=== PATIENT | female | born 1960 | race Caucasian/White ===

== ENCOUNTER → 2021-09-04 07:58 | Outpatient (CLI) | payer SELFPAY ==
--- NOTE | 2021-09-04 08:06 | BI_ITS ---
MAMMOGRAPHY - BILATERAL SCREENING REASON FOR EXAM: Female, 61 years old. Routine annual screening examination. PERTINENT HISTORY: Mother with breast cancer. Aunts with breast cancer. TECHNIQUE: Digital bilateral breast shadi (3D mammographic acquisition) in the CC and MLO projections. 2-D mediolateral oblique (MLO) and craniocaudad (CC) views of both breasts were obtained. CAD: Full Field Digital Mammography with Computer Added Detection was performed. COMPARISON: No comparison mammograms available at this time. If any prior films become available, an addendum to this report can be generated. FINDINGS: Breast Composition: The breasts are heterogeneously dense, which may obscure small masses. There are no dominant masses or suspicious calcifications. Small benign-appearing bilateral axillary lymph nodes. No other significant abnormalities are identified. BI/SCRN MAMM (CAD)W/SHADI BILAT IMPRESSION: Negative screening mammogram. Yearly followup mammogram recommended. (A) ASSESSMENT CATEGORY: BIRADS Category 2: Benign. A letter regarding these results will be sent to the patient by the facility within 30 days. Approximately 10% of breast cancers are not detected by mammography. A normal mammogram should not delay biopsy of a clinically suspicious abnormality. [id number] Electronically Signed: Mike Valle MD at 9:13 EST , Service support ,
== END ==
PROVIDERS: Visit Provider Obstetrics & Gynecology
DX: Z12.31 Encounter for screening mammogram for malignant neoplasm of breast (principal); Z80.3 Family history of malignant neoplasm of breast
CPT/HCPCS: 77063; 77067

== ENCOUNTER → 2022-08-27 | Outpatient (CLI) | payer SELFPAY, OTHER ==
--- NOTE | 2022-08-27 10:05 | BI_ITS ---
MAMMOGRAPHY - BILATERAL SCREENING REASON FOR EXAM: Female, 62 years old. Routine annual screening examination. PERTINENT HISTORY: Mother with breast cancer. Aunts with breast cancer. Occasional left lateral breast tenderness. TECHNIQUE: Digital bilateral breast shadi (3D mammographic acquisition) in the CC and MLO projections. 2-D mediolateral oblique (MLO) and craniocaudad (CC) views of both breasts were obtained. CAD: Full Field Digital Mammography with Computer Added Detection was performed. COMPARISON: Comparison is made with prior study dated 09/04/2021. FINDINGS: Breast Composition: The breasts are heterogeneously dense, which may obscure small masses. Questionable focal area of architectural distortion in the upper lateral aspect of the right breast. Stable benign-appearing bilateral axillary lymph nodes. No other significant abnormalities are identified. BI/SCRN MAMM (CAD)W/SHADI BILAT IMPRESSION: A small focal area of architectural distortion upper lateral aspect of the right breast. Correlation with ultrasound is recommended. ASSESSMENT CATEGORY: BIRADS Category 0: Incomplete. Need additional imaging evaluation. A letter regarding these results will be sent to the patient by the facility within 30 days. Approximately 10% of breast cancers are not detected by mammography. A normal mammogram should not delay biopsy of a clinically suspicious abnormality. [id number] Electronically Signed: Mike Valle MD at 10:48 EST ,
--- NOTE | 2022-08-27 10:26 | US_ITS ---
STUDY: ULTRASOUND BREAST - RIGHT REASON FOR EXAM: Female, 62 years old. Abnormal screening mammogram. TECHNIQUE: Axial and longitudinal images of the RIGHT breast were performed with a high resolution ultrasound transducer. # OF IMAGES: 83 COMPARISON: Comparison is made with prior mammogram done earlier in the day. FINDINGS: RIGHT Breast: The upper outer aspect of the right breast was examined with ultrasound. There is dense heterogeneous fibroglandular tissue. No solid or cystic mass lesion is seen. 2 small benign-appearing lymph nodes are seen at the 10 o''clock position in the breast at 4 cm from nipple. The larger measures 6 mm x 5 mm x 3 mm IMPRESSION: 2 benign appearing lymph nodes are seen at the 9 o''clock position of the breast at 4 cm from the nipple. ASSESSMENT CATEGORY: BIRADS Category 2: Benign. A letter regarding these results will be sent to the patient by the facility within 30 days. Electronically Signed: Mike Valle MD at 12:32 EST , STUDY: ULTRASOUND BREAST - LEFT REASON FOR EXAM: Female, 62 years old. Left breast tenderness. TECHNIQUE: Axial and longitudinal images of the LEFT breast were performed with a high resolution ultrasound transducer. # OF IMAGES: 83 COMPARISON: Comparison is made with prior mammogram done earlier today. FINDINGS: LEFT Breast: The lateral aspect of the left breast was examined with ultrasound. No sonographic abnormality is seen. US/Breast Limited Unilateral IMPRESSION: No sonographic abnormality is seen. ASSESSMENT CATEGORY: BIRADS Category 1: Negative. A letter regarding these results will be sent to the patient by the facility within 30 days. Electronically Signed: Mike Valle MD at 12:32 EST ,
== END | disposition home or self-care (01) ==
LOC: OPBI 09:46
PROVIDERS: Referring Provider Registered Nurse; Visit Provider Registered Nurse
DX: Z12.31 Encounter for screening mammogram for malignant neoplasm of breast (principal); N64.2 Atrophy of breast
CPT/HCPCS: 76642; 77063; 77067

== ENCOUNTER → 2023-09-02 | Outpatient (CLI) | payer SELFPAY, OTHER ==
--- NOTE | 2023-09-02 08:56 | BI_ITS ---
MAMMOGRAPHY - BILATERAL SCREENING REASON FOR EXAM: Female, 63 years old. Routine annual screening examination. PERTINENT HISTORY: Mother with breast cancer. Aunt with breast cancer. TECHNIQUE: Digital bilateral breast shadi (3D mammographic acquisition) in the CC and MLO projections. 2-D mediolateral oblique (MLO) and craniocaudad (CC) views of both breasts were obtained. CAD: Full Field Digital Mammography with Computer Added Detection was performed. COMPARISON: Comparison is made with prior mammogram dated August 27, 2022 and September 04, 2021. FINDINGS: Breast Composition: The breasts are heterogeneously dense, which may obscure small masses. There are no dominant masses or suspicious calcifications. Stable small benign-appearing bilateral axillary lymph nodes. No other significant abnormalities are identified. There has been no significant change since the prior study. BI/SCRN MAMM (CAD)W/SHADI BILAT IMPRESSION: Stable bilateral screening mammogram. Yearly follow-up mammogram recommended. (A) ASSESSMENT CATEGORY: BIRADS Category 2: Benign. A letter regarding these results will be sent to the patient by the facility within 30 days. Approximately 10% of breast cancers are not detected by mammography. A normal mammogram should not delay biopsy of a clinically suspicious abnormality. [id number] Electronically Signed: Mike Valle MD at 9:44 EST ,
== END | disposition home or self-care (01) ==
LOC: OPBI 08:31
PROVIDERS: PCP Family Medicine; Referring Provider Advanced Practice Midwife; Visit Provider Advanced Practice Midwife
DX: Z12.31 Encounter for screening mammogram for malignant neoplasm of breast (principal); Z80.3 Family history of malignant neoplasm of breast
CPT/HCPCS: 77063; 77067

== ENCOUNTER → 2024-08-31 | Outpatient (CLI) | payer SELFPAY, OTHER | END | disposition home or self-care (01) | PROVIDERS: PCP Family Medicine; Referring Provider Nurse Practitioner Women's Health; Visit Provider Nurse Practitioner Women's Health | DX: Z12.31 Encounter for screening mammogram for malignant neoplasm of breast (principal) | CPT/HCPCS: 77063; 77067 ==

== ENCOUNTER → 2025-08-30 | Outpatient (CLI) | payer SELFPAY, OTHER ==
--- NOTE | 2025-08-30 09:41 | BI_ITS ---
EXAM: SCRN MAMM (CAD)W/SHADI BILAT DATE: 08/30/2025 CLINICAL HISTORY: F, Age 65 y/o , SCREEN Mother with breast cancer. Aunts with breast cancer. TECHNIQUE: Procedure Code: [id number] Modality: MG Procedure: SCRN MAMM (CAD)W/SHADI BILAT COMPARISON: Prior exam(s) dated August 31, 2024.. FINDINGS: TISSUE DENSITY: The breasts are heterogeneously dense, which may obscure small masses. Bilateral Breast Mammographic Findings: No significant masses, calcifications or other abnormalities are identified. Asymmetry of breast tissue were more breast tissue is seen in the upper-outer quadrant of the right breast. Sonographic correlation recommended. BI/SCRN MAMM (CAD)W/SHADI BILAT IMPRESSION: Asymmetrical breast tissue in the upper-outer quadrant of the right breast. So nographic correlation recommended. OVERALL FINAL ASSESSMENT BI-RADS 0: INCOMPLETE - NEED ADDITIONAL IMAGING EVALUATION. RECOMMENDATION: Ultrasound Recommended Additional Recommendation none A letter with findings and recommendations will be mailed to the patient. Reading Location: [id number]
--- OUTSIDE RECORDS SUMMARY | 2025-08-30 09:53 | XMS RPT_ITS | CCD ---
Author Organization [facility] Team Providers Care Diesel Technician Mechanic Name Role Phone Care Physician, No Primary Primary Care Provider Unavailable SERGE Keane Attending Provider [phone] LUPE ARIZA Attending Unavailable LUPE ARIZA Primary Care Unavailable LUPE ARIZA Primary Care Unavailable LUPE ARIZA Referring Unavailable LUPE ARIZA Primary Care Unavailable Lupe Ariza MD Primary Care Provider Judy Chaudhry NP Attending Unavailable Lupe Ariza Primary Care Unavailable Judy Chaudhry NP Referring Unavailable Lupe Ariza Primary Care Unavailable Judy Chaudhry NP Referring Unavailable Judy Chaudhry NP Attending Unavailable Allergies Allergy Classification Reported Allergen(s) Allergy Type Date of Onset Reaction(s) Facility (1 source) Anesthetics - Amide Type - Select A Drug allergy (disorder) 04-07-2024 [facility] Repository Medications Completed/Discontinued Medications Medication Drug Class(es) Dates Sig (Normalized) Sig (Original) aspirin 81 mg oral tablet (1 source) Platelet Aggregation Inhibitor, Nonsteroidal Anti-inflammatory Drug Start: 10-29-2005 ASPIRIN 81 MG TAB Take one (1) tablet daily . 0 10/29/2005 Active Comment on above: Take one (1) tablet daily . mv,Ca,min-folic acid-vit K1 (ONE-A-DAY WOMEN'S 50 PLUS) 400-20 mcg tab (1 source) Start: 01-07-2019 take 50-400 tablets by mouth once daily mv,Ca,min-folic acid-vit K1 (ONE-A-DAY WOMEN'S 50 PLUS) 400-20 mcg tab Take 1 tablet by mouth once daily. 0 01/07/2019 Active Comment on above: Take 1 tablet by ernesto once daily. omega-3 fatty acids(FISH OIL 500 MG CAP) (1 source) Start: 12-16-2007 omega-3 fatty acids(FISH OIL 500 MG CAP) Take one(1) capsule daily. 0 12/16/2007 Active Comment on above: Take one(1) capsule daily. vitamin e 268 mg oral capsule (1 source) take 1 capsule by mouth once daily alpha tocopheryl acetate (VITAMIN E) 400 unit capsule Take 400 Units by mouth once daily. 0 Active Comment on above: Take 400 Units by mo ut once daily. Problems Active Problems Problem Classification Problem Date Documented Da te Episodic/Chronic Disorders of lipid metabolism (2 sources) Pure hypercholesterolemi a, unspecified; Translations: [Pure hypercholesterolemi a] Onset: 12-15-2006 12-15-2006 Chronic Genitourinary symptoms and ill-defined conditions (1 source) Female stress incontinence; Translations: [Stress incontinence (female) (male)] Onset: 09-15-2009 09-15-2009 Chronic Menopausal disorders (1 source) Atrophic vaginitis; Translations: [Postmenopausal atrophic vaginitis] Onset: 09-15-2009 09-15-2009 Chronic Prolapse of female genital organs (1 source) Midline cystocele; Translations: [Cystocele, midline] Onset: 09-15-2009 09-15-2009 Chronic Residual codes; unclassified (2 sources) Family history of breast cancer; Translations: [Family history of malignant neoplasm of breast] Onset: 09-15-2009 09-15-2009 Episodic Past or Other Problems Problem Classification Problem Date Documented Da te Episodic/Chronic Cancer of cervix (1 source) Cervical atypism; Translations: [Atypical squamous cells of undetermined significance on cytologic smear of cervix (ASC-US)] Onset: 09-15-2009 09-15-2009 Episodic Diabetes mellitus without complication (1 source) Other abnormal glucose; Translations: [Elevated glucose] Onset: 11-08-2021 Episodic Genitourinary symptoms and ill-defined conditions (1 source) Urgent desire to urinate; Translations: [Urgency of urination] Onset: 09-15-2009 09-15-2009 Episodic Other screening for suspected conditions (not mental disorders or infectious disease) (5 sources) Mammography abnormal; Translations: [Other abnormal and inconclusive findings on diagnostic imaging of breast] Onset: 09-26-2024 Episodic Results Test Name Value Interpretation Reference Range Facility Lamp Tester And Inspector Office Visit Reporton 08-31-2024 Lamp Tester [employer] Inspector Office Visit Report [facility] [address], [address] [place] [address] OFFICE VISIT Date of Service: 08/31/24 MR#: [id number] Acct: [id number] Name: VIANEY TORRE Rep #: [id number] : 1960 Provider: SINGH Ruffin Age/Sex: 64/F Location: [facility] Status: Signed Intake Vital Signs 04/07/24 14:27 08/31/24 09:09 Height 5 ft 1 in 5 ft 1 in Weight: 147 lb BMI 27.8 BP 133/85 H Blood Pressure Location Lt brachial Position Sitting Pulse 105 H Pulse Source Monitor Temp 98.5 F Pulse Oximetry (%) 98 Intake Visit Reasons: MAMMOGRAM OUTREACH Allergies Anesthetics - Amide Type - Select A (anesthesia) Adverse Reaction (Intermediate, Verified 04/07/24 14:32) takes longer to wake PFS Family History (Updated 08/31/24 @ 09:09 by SINGH Grigsby) Mother Cancer Breast cancer Aunt Cancer Breast cancer Father Colon cancer Social History Smoking Status: Never smoker HPI MAMMOGRAM OUTREACH Details: VIANEY TORRE is a 64 year old who presents for breast exam and mammogram event. She reports no issues or concerns today. ROS Const Constitutional: Reports system reviewed and no additional complaints, except as documented : Reports system reviewed and no additional complaints, except as documented; Denies nipple discharge Skin Skin/Breast: Reports as per HPI; Denies breast mass, breast pain, breast skin changes or nipple discharge Psych Psych: Reports system reviewed and no additional complaints, except as documented Exam Const General: cooperative and no acute distress Orientation: oriented x3 HENMT Head: normal to inspection Neck Neck: normal visual inspection Chest Breast inspection: normal inspection of the breasts and normal inspection of the axillae Breast palpation: normal palpation of the breasts and normal palpation of the axillae Resp Effort Inspection: normal respiratory effort and able to speak in complete sentences Coding Level of Care Code Attention Ani Diagnoses Breast cancer screening Z12.39 Assessment and Plan Assessment and Plan (1) Breast cancer screening: Status: Acute Plan: Breast exam complete. Mammogram ordered. Final plan with results. Orders: Orders SCRN MAMM (CAD)W/SHADI BILAT Today Z12.39 - Encounter for other screening for malignant neoplasm of breast 08/31/24 0916 Date Radha WINTERS Cosigner Signature: Date (if applicable) CC: Normal [facility] SCRN MAMM (CAD)W/SHADI BILATo n 08-31-2024 SCRN MAMM (CAD)W/SHADI BILAT [facility] Imaging Services [address] [place] [address] SCRN MAMM (CAD)W/SHADI BILAT MR#: [id number] Acct: [id number] Name: VIANEY TORRE Rep #: [id number] : 1960 F 64 From: Mike short MD PCP: Dr. Lupe Ariza MD Status: [facility] Study: SCRN MAMM (CAD)W/SHADI BILAT Date of Exam: 08/20 12/13 Exam# [id number] Ordering Dr: Radha James -[id number] MAMMOGRAPHY - BILATERAL SCREENING REASON FOR EXAM: Female, 64 years old. Routine annual screening examination. PERTINENT HISTORY: Mother with breast cancer. Aunts with breast cancer. TECHNIQUE: Digital bilateral breast shadi (3D mammographic acquisition) in the CC and MLO projections. 2-D mediolateral oblique (MLO) and craniocaudad (CC) views of both breasts were obtained. CAD: Full Field Digital Mammography with Computer Added Detection was performed. COMPARISON: Comparison is made with prior study dated September 02, 2023 and August 27, 2022. FINDINGS: Breast Composition: The breasts are heterogeneously dense, which may obscure small masses. There are no dominant masses or suspicious calcifications. Stable small benign-appearing bilateral axillary lymph nodes. No other significant abnormalities are identified. There has been no significant change since the prior study. BI/SCRN MAMM (CAD)W/SHADI BILAT IMPRESSION: Stable bilateral screening mammogram. Yearly follow-up mammogram recommended. (A) ASSESSMENT CATEGORY: BIRADS Category 2: Benign. A letter regarding these results will be sent to the patient by the facility within 30 days. Approximately 10% of breast cancers are not detected by mammography. A normal mammogram should not delay biopsy of a clinically suspicious abnormality. [id number] Electronically Signed: Mike Valle MD at 9:59 EST , CC: SINGH James; Dr. Lupe Ariza MD Enamel Finisher: Signed Normal [facility] 09-28-[address] [facility] Telephone (FAMPWS) VIANEY TORRE ([id number]) 1960 F Date Time Provider Department 09/28/22 LUPE ARIZA During your visit today, we recorded the following information about you: Lupe Ariza MD 09/28/2022 9:03 AM Signed Please notify patient that her stool test is normal Lupe MD Cynthia May Ma 09/28/2022 9:51 AM Signed Letter mailed to pt home of results. Cynthia Yi MA Allergies As of Date: 09/28/2022 (No Known Allergies) Date Reviewed: 11/19/2021 Reviewed by: Eron Martinez Ma - Fully Assessed Reason for Visit: Results [95] Prescriptions as of 09/28/2022 - mv,Ca,min-folic acid-vit K1 (ONE-A-DAY WOMEN'S 50 PLUS) 400-20 mcg tab Take 1 tablet by mouth once daily. - alpha tocopheryl acetate (VITAMIN E) 400 unit capsule Take 400 Units by mouth once daily. - omega-3 fatty acids(FISH OIL 500 MG CAP) Take one(1) capsule daily. - ASPIRIN 81 MG TAB Take one (1) tablet daily . Problem List As Of Date 09/28/2022 Noted Resolved PURE HYPERCHOLESTEROLEM [E78.00] 12/15/2006 ASCUS Favor Benign [R87.610] 09/15/2009 Family History of Malignant Neoplasm of Breast *09/15/2009 Postmenopausal Atrophic Vaginitis [N95.2] 09/15/2009 Cystocele, Midline [N81.11] 09/15/2009 Urgency of Urination [R39.15] 09/15/2009 Female Stress Incontinence [N39.3] 09/15/2009 Letter Text Encounter Status:Closed by CYNTHIA YI MA on 09/28/22 Normal [facility] Hemoccult Stl Ql IAon 2021 Lower GI hemoglobin IA Ql (Stl) Negative Normal Negative [facility] Comment on above: Order Comment: Specimen Type: STOOL SPEC IMEN Ordering Facility: [facility] Address: [address] [place] [address] Performed By: #### 2 [id number] #### [facility] CLIA [id number] [address] [place] [address] [place] CNOVon 11-19-2021 CNOV Office Visit (FAMPWS ) VIANEY TORRE ([id number]) 1960 F Date Time Provider Department 11/19/21 8:00 AM LUPE ARIZA During your visit today, we recorded the following information about you: Pulse Respiration Blood pressure Weight 78/minute 16/minute 130/84 66.6 kg Height 1.556 m Lupe Ariza MD 11/19/2021 9:29 AM Signed Chief Complaint Patient presents with: Wellness HPI Vianey Torre is a 61 year old female who presents here today for physical. Last OV was 01/07/2019. Pt will be leaving for [facility] for 8 days, then to [facility]). Leaving soon and staying for 2 weeks. GI/Urinary - No bowel, Gi, or urinary issues. Pt had colonoscopy completed in 2016, which recommended repeat 5 year surveillance. FHx Father of rectal cancer. Not really wanting to do colonoscopy but agrees to IFOBT. Does have intermittent issues with hemorrhoids. Cardiac - Denies any chest pain, sob or dizziness. Will have occasional mid-sternal sensation that occurs rarely, not real concerned about it. Diet/Exercise - Feels that she follows a pretty good balanced diet, could improve with eating more fruit. Denies any formal exercise, does bike but stays fairly busy at home. Foot - Hit right foot against door stop quite some time ago. Will have occasional burning pain on the medial side of her foot and possibly swollen. Believes it may be related to her shoes. Ears - Would like to have ears looked at, especially right ear. Feels there is some excessive wax on that side. Does clean with qtips. Derm - Spot on face that she's previously had looked at by Dr. Ly Little. Taking multivitamin, Vit E, Fish oil, and Aspirin 81 mg daily. HM - Declines Covid vaccine and flu vaccine. Pt completed Mammogram at [facility] on 09/18/ Past medical history, appointments, medications, allergies reviewed. Previous Medical History PAST MEDICAL HISTORY Diagnosis Date - H - PAST MEDICAL HISTORY OF low back pain - Snoring - Unspecified hemorrhoids without mention of complication Hemorrhoids Previous Surgical History PAST SURGICAL HISTORY Procedure Laterality Date - COLONOSCOPY N/A 03/19/2016 Dr. Galeano - [facility], DIAG AND/OR THERAPEUTIC 1992, 1991 Dilation AND curettagex 2 Family History FAMILY HISTORY Problem Relation Age of Onset - Breast Cancer Mother - Breast Cancer Maternal Aunt - Breast Cancer Maternal Aunt - Cancer Maternal Aunt ovarian - Heart Maternal Grandfather - Cancer Paternal Aunt leukemia - Cancer Paternal Aunt brain - Cancer Paternal Uncle bone - Diabetes Maternal Grandmother - Cancer Father rectal Patient Allergies ALLERGIES No Known Allergies Current Medications Current Outpatient Medications on File Prior to Visit Medication Sig - mv,Ca,min-folic acid-vit K1 (ONE-A-DAY WOMEN'S 50 PLUS) 400-20 mcg tab Take 1 tablet by mouth once daily. - alpha tocopheryl acetate (VITAMIN E) 400 unit capsule Take 400 Units by mouth once daily. - omega-3 fatty acids(FISH OIL 500 MG CAP) Take one(1) capsule daily. - ASPIRIN 81 MG TAB Take one (1) tablet daily . No current facility-administered medications on file prior to visit. Social History Social History Tobacco Use - Smoking status: Never Smoker - Smokeless tobacco: Never Used Substance Use Topics - Alcohol use: Yes Comment: occasionally - Drug use: No EXAM: BP 130/84 (BP Site: Left Arm, BP Position: Sitting, BP Cuff Size: Regular Adult) Pulse 78 Resp 16 Ht 155.6 cm (5' 1.25) Wt 66.6 kg (146 lb 12.8 oz) LMP 10/22/2012 BMI 27.51 kg/m? Gen: Alert and oriented, NAD CV: RRR Lungs: clear Right foot: mild tenderness on medial navicular, no swelling Health Maintenance List COVID-19 VACCINE(1) Never done HIV SCREENING Never done SHINGRIX VACCINE(1 of 2) Never done PAP TESTING due on 09/15/2014 HPV TESTING due on 09/15/2014 DEPRESSION SCREENING due on 01/08/2020 MAMMOGRAM due on 09/22/2020 COLORECTAL CANCER SCREENING due on 03/19/2021 INFLUENZA(1) due on 06/20/2021 DIABETES SCREEN due on 11/08/2024 LIPID SCREEN due on 11/08/2026 DTAP,TDAP,TD(2 - Td or Tdap) due on 11/12/2026 HEPATITIS C SCREENING Completed MENINGOCOCCAL CONJUGATE Aged Out Data reviewed Appointment on 11/08/2021 Component Date Value - Protein, Total 11/08/2021 7.1 - Albumin 11/08/2021 4.5 - Calcium 11/08/2021 9.4 - Bilirubin, Total 11/08/2021 0.4 - Alkaline Phosphatase 11/08/2021 81 - AST 11/08/2021 29 - Glucose 11/08/2021 87 - BUN 11/08/2021 17 - Creatinine 11/08/2021 0.65 - Sodium 11/08/2021 142 - Potassium 11/08/2021 4.1 - Chloride 11/08/2021 104 - CO2 11/08/2021 24 - Anion Gap 11/08/2021 14 - ALT 11/08/2021 27 - eGFR- 11/08/2021 >60 - eGFR-All Other Races 11/08/2021 >60 - Cholesterol, Total 11/08/2021 288 (A) - Triglyceride more content not included)... Normal [facility] Comp Metabolic Panelon 11-08 Albumin [Mass/Vol] 4.5 g/dL Normal 3.9-4.9 [facility] Comment on above: Performed By: #### LIPB, HBA1C, CMP #### [facility] [email or web address] [address] [place], [place] [address] ALP [Catalytic activity/Vol] 81 U/L Normal 34-123 [facility] Comment on above: Performed By: #### LIPB, HBA1C, CMP #### [facility] [email or web address] [address] [place], [place] [address] ALT [Catalytic activity/Vol] 27 U/L Normal 7-38 [facility] Comment on above: Performed By: #### LIPB, HBA1C, CMP #### [facility] [email or web address] [address] [place], [place] [address] Anion gap [Moles/Vol] 14 mmol/L Normal 9-18 [facility] Comment on above: Performed By: #### LIPB, HBA1C, CMP #### [facility] [email or web address] [address] [place], [place] [address] AST [Catalytic activity/Vol] 29 U/L Normal 13-35 [facility] Comment on above: Performed By: #### LIPB, HBA1C, CMP #### [address] [address] Bilirubin [Mass/Vol] 0.4 mg/dL Normal 0.2-1.3 [facility] Comment on above: Performed By: #### LIPB, HBA1C, CMP #### [place] [address] Calcium [Mass/Vol] 9.4 mg/dL Normal 8.5-10.2 [facility] Comment on above: Performed By: #### LIPB, HBA1C, CMP #### [place] [address] Chloride [Moles/Vol] 104 mmol/L Normal 97-105 [facility] Comment on above: Performed By: #### LIPB, HBA1C, CMP #### [place] [address] CO2 [Moles/Vol] 24 mmol/L Normal 22-30 [facility] Comment on above: Performed By: #### LIPB, HBA1C, CMP #### [address] [address] Creatinine [Mass/Vol] 0.65 mg/dL Normal 0.58-0.96 [facility] Comment on above: Performed By: #### LIPB, HBA1C, CMP #### [place] [id number] [place], [place] [address] eGFR- Amer. >60 Normal [facility] Comment on above: Performed By: #### LIPB, HBA1C, CMP #### [place] [address] eGFR-All Other Races >60 Normal [facility] Comment on above: Result Comment: eGFR (Estimated GFR) Uni ts of measure: mL/min/1.73 meters squared eGFR is derived from the reexpressed MDRD Study equation using the following parameters: serum creatinine, age, gender and race. The creatinine assay has been calibrated to be traceable to IDMS. An eGFR <60 mL/min/1.73m2 for >3 months is consistent with chronic kidney disease. Refer to KDOQI guidelines for clinical interpretation. In patients with unstable renal function, e.g. those with acute kidney injury, the eGFR may not accurately reflect actual GFR. Note: On 12/15/2021, the eGFR calculation will be updated to the NKF-ASN Task Force recommended 2020 CKD-EPI creatinine equation which does not include a race variable. For more information or to access a 2020 CKD-EPI calculator, visit the National Kidney Foundation website at kidney.org/professionals/kdoqi/gfr_calculator. Performed By: #### L IPB, HBA1C, CMP #### [facility] [email or web address] [address], [place] [address] Glucose [Mass/Vol] 87 mg/dL Normal 74-99 [facility] Comment on above: Result Comment: The French Diabetes As sociation (ADA) provides guidance for cutoff values for fasting glucose and random glucose. The ADA defines fasting as no caloric intake for at least 8 hours. Fasting plasma glucose results between 100 to 125 mg/dL indicate increased risk for diabetes (prediabetes). Fasting plasma glucose results greater than or equal to 126 mg/dL meet the criteria for diagnosis of diabetes. In the absence of unequivocal hyperglycemia, results should be confirmed by repeat testing. In a patient with classic symptoms of hyperglycemia or hyperglycemic crisis, random plasma glucose results greater than or equal to 200 mg/dL meet the criteria for diagnosis of diabetes. Reference: Standards of Medical Care in Diabetes 2016, French Diabetes Association. Diabetes Care. 2016.39(Suppl 1). Performed By: #### L IPB, HBA1C, CMP #### [email or web address] [address], [place] [address] Potassium [Moles/Vol] 4.1 mmol/L Normal 3.7-5.1 [facility] Comment on above: Performed By: #### LIPB, HBA1C, CMP #### [email or web address] [address] [place] [address] Protein [Mass/Vol] 7.1 g/dL Normal 6.3-8.0 [facility] Comment on above: Performed By: #### LIPB, HBA1C, CMP #### [place] [address] Sodium [Moles/Vol] 142 mmol/L Normal 136-144 [facility] Comment on above: Performed By: #### LIPB, HBA1C, CMP #### [place] [address] Urea nitrogen [Mass/Vol] 17 mg/dL Normal 7-21 [facility] Comment on above: Performed By: #### LIPB, HBA1C, CMP #### [place] [address] Hemoglobin A1con 11-08-2021 Glucose [Mass/Vol] 120 mg/dL Normal [facility] Comment on above: Result Comment: eAG: (Estimated average glucose) is a calculated value from HgbA1c and is account maintenance representative of the average blood glucose level in the last 2-3 month period. Performed By: #### L IPB, HBA1C, CMP #### [place] [address] HbA1c (Bld) [Mass fraction] 5.8 % High 4.3-5.6 [facility] Comment on above: Result Comment: French Diabetes Associ ation guidelines indicate that patients with HgbA1c in the range 5.7-6.4% are at increased risk for development of diabetes, and intervention by lifestyle modification may be beneficial. HgbA1c greater or equal to 6.5% is considered diagnostic of diabetes. Performed By: #### L IPB, HBA1C, CMP #### [place] [address] Lipid Panel, [place] 022 Cholesterol [Mass/Vol] 288 mg/dL High <200 [facility] Comment on above: Result Comment: <200 mg/dL, Desirable 200-239 mg/dL, Borderline high >239 mg/dL, High Performed By: #### L IPB, HBA1C, CMP #### [email or web address] [address] [place], [place] [address] Cholesterol in HDL [Mass/Vol] 97 mg/dL Normal >39 [facility] Comment on above: Result Comment: 40-59 mg/dL, Acceptable >59 mg/dL, High: Negative risk factor for coronary heart disease <40 mg/dL, Low: Positive risk factor for coronary heart disease Performed By: #### L IPB, HBA1C, CMP #### [email or web address] [address] [place], [place] [address] Cholesterol in LDL [Mass/Vol] 178 mg/dL High <100 [facility] Comment on above: Result Comment: <100 mg/dL, Optimal 100-129 mg/dL, Near optimal/above optimal 130-159 mg/dL, Borderline high 160-189 mg/dL, High >189 mg/dL, Very high Secondary prevention optimal LDL Cholesterol levels are recommended to be < 70 mg/dL Performed By: #### L IPB, HBA1C, CMP #### [email or web address] [address] [place] [address] Fasting Time 12 hrs Normal [facility] Comment on above: Performed By: #### LIPB, HBA1C, CMP #### [email or web address] [address] [place] [address] LDL:HDL Ratio 1.84 Normal <2.54 [facility] Comment on above: Result Comment: Reference: 1. National Cholesterol Education Program ATP III Guideline At-A-Glance Quick Desk Reference: National Heart, Lung, and Blood Countyline. National Institutes of Health. 2001: NIH Publication No. 01-3305. 2. An International Atherosclerosis Society position paper: global recommendations for the management of dyslipidemia: executive summary, Atherosclerosis. 2014: 232(2):410-413. Performed By: #### L IPB, HBA1C, CMP #### [email or web address] [address] [place] [address] Non HDL Cholesterol 191 mg/dL High <130 [facility] Comment on above: Result Comment: <130 mg/dL, Optimal 130-159 mg/dL, Near optimal/above optimal 160-189 mg/dL, Borderline high 190-219 mg/dL, High >219 mg/dL, Very high Secondary prevention optimal non HDL Cholesterol levels are recommended to be < 100 mg/dL Performed By: #### L IPB, HBA1C, CMP #### [email or web address] [address] [place] [id number] TC:HDL Ratio 2.97 Normal <5.10 [facility] Comment on above: Performed By: #### LIPB, HBA1C, CMP #### [email or web address] [address] [place] [address] Triglyceride [Mass/Vol] 67 mg/dL Normal <150 [facility] Comment on above: Result Comment: <150 mg/dL, Normal 150-199 mg/dL, Borderline high 200-499 mg/dL, High >499 mg/dL, Very high Performed By: #### L IPB, HBA1C, CMP #### [email or web address] [address] [place] [address] VLDL Cholesterol 13 mg/dL Normal <30 [facility] Comment on above: Performed By: #### LIPB, HBA1C, CMP #### [email or web address] [address] [place] [id number] CNPMillie 10-31-2021 CNPN Telephone [facility] VIANEY TORRE ([id number]) 1960 F Date Time Provider Department 10/31/21 LUPE ARIZA [facility] During your visit today, we recorded the following information about you: Estehr Conroy RN 10/31/2021 9:40 AM Signed Patient calls to ask if she can have orders put in for lab work prior to her physical appointment on November 19. Patient reports that she is coming to town on Friday next week and would like to complete it at that time. Patient also asks if she can have Covid 19 antibody testing completed at that time. JOSSIE Escobar MD 10/31/2021 2:47 PM Signed Labs ordered [facility] does not do Covid antibody testing because it has not been shown to be an accurate or helpful test MD Eron Cordova Ma 10/31/2021 3:03 PM Signed Called and notified of message below. Pt verbalized understanding. Eron Martinez Ma Allergies As of Date: 10/31/2021 (No Known Allergies) Date Reviewed: 01/07/2019 Reviewed by: Eron Martinez Ma - Fully Assessed Reason for Visit: Requesting labs [Other] Primary Visit Diagnosis:Wellness examination [Z00.00] Other Visit Diagnoses:Pure hypercholesterolemia [E78.00] Elevated glucose [R73.09] Order(s):COMP METABOLIC PANEL [SQCMP] Order #: [id number] FUTURE LIPID PANEL BASIC [SQLIPB] Order #: [id number] FUTURE HGB A1C [RYEOW0X] Order #: [id number] FUTURE Prescriptions as of 10/31/2021 - mv,Ca,min-folic acid-vit K1 (ONE-A-DAY WOMEN'S 50 PLUS) 400-20 mcg tab Take 1 tablet by mouth once daily. - alpha tocopheryl acetate (VITAMIN E) 400 unit capsule Take 400 Units by mouth once daily. - omega-3 fatty acids(FISH OIL 500 MG CAP) Take one(1) capsule daily. - ASPIRIN 81 MG TAB Take one (1) tablet daily . Problem List As Of Date 10/31/2021 Noted Resolved PURE HYPERCHOLESTEROLEM [E78.00] 12/15/2006 ASCUS Favor Benign [R87.610] 09/15/2009 Family History of Malignant Neoplasm of Breast *09/15/2009 Postmenopausal Atrophic Vaginitis [N95.2] 09/15/2009 Cystocele, Midline [N81.11] 09/15/2009 Urgency of Urination [R39.15] 09/15/2009 Female Stress Incontinence [N39.3] 09/15/2009 Encounter Status:Closed by ERON MARTINEZ MA on 10/31/21 Normal [facility] GYNon 12-31-2017 INTERNET SALES REPRESENTATIVE HUMILITY OF VIANEY MALIK [place] [address] FINAL GYNECOLOGIC CYTOLOGY REPORTNAME: VIANEY TORRE Date of 12/31/2017 Collection:Medical Record [id number] Date of 01/08/2018Number: Receipt:Age: 57 Y Sex: F Date 01/14/2018 08:08 Reported:Date Of : 1960Financial [id number] Admitting MICHAEL JUAREZNumber: Physician:Patient HHOFF Ordering MICHAEL JUAREZLocation: Physician:Accession Number: [id number] Source: CERVICAL PAP SMEAR Relevant Clinical History: Smears . . . . . . . . . .: 1LMP . . . . . . . . . . . . . . . . . . . . . : Not Provided Colposcopy . . . . . . . . . . . .Menopause . . . . . . . . . . . . . . : x. . . : Y HPV Reflex? . . . . . . . . . . .Date of Last Pap Test .. . . . . . . : n/a. : ??/2014Result of Last Pap Test . . . . . . : negComment: Low risk screenSPECIMEN ADEQUACY:Satisfactory for interpretationEndocervical component cannot be determined due to atrophyGENERAL CATEGORIZATION:NEGATIVE FOR INTRAEPITHELIAL LESION OR MALIGNANCYINTERPRETATION/RESUL T:Atrophic vaginitis.COMMENTS:This case has been reviewed for Q.C. negative rescreen (10 percent). SUAREZ LMSScreened by / Reviewed by (Electronic Signature) Department of Pathology Page 1 of 1 Normal [facility] Encounters Encounter Date Encounter Type Care Provider Facility Start: 08-30-2025 ambulatory Lupe Rain y:[facility] [place] Start: 08-31-2024 End: 08-31-2024 ambulatory Judy Chaudhry NP Facility:[facility] Start: 09-02-2023 End: 09-02-2023 ambulatory [facility] Work Phone: Start: 09-02-2023 End: 09-02-2023 Patient encounter procedure [facility] Work Phone: Start: 10-23-2022 ambulatory Lupe marc MD Work Phone: Internal Medicine [facility] Start: 09-26-2022 End: 09-26-2022 ambulatory LUPE Garcia [facility] Facility:[facility] Start: 08-27-2022 Non-patient / Non-visit No [facility] Physician [facility] Start: 08-27-2022 End: 08-27-2022 ambulatory No Primary Care Physician [facility] Work Phone: Start: 08-27-2022 End: 08-27-2022 Patient encounter procedure No Primary Care Physician [facility] Start: 11-19-2021 End: 11-19-2021 ambulatory LUPE Garcia [facility] Facility:[facility] Start: 11-08-2021 Encounter for genera l adult medical examination without abnormal findings LUPE ARIZA [facility] Start: 11-08-2021 End: 11-08-2021 ambulatory LUPE Garcia [facility] Facility:[facility] Procedures Date Procedure Procedure Detail Performing Clinician Start: 09-02-2023 Screening mammography Start: 08-27-2022 Ultrasonography of breast No Primary Care Physician Start: 08-27-2022 Screening mammography N o Primary Care Physician Start: 09-04-2021 Mammography Lupe love MD Work Phone: Start: 03-19-2016 Colonoscopy Lupe love MD Work Phone: Plan of Treatment Date Care Activity Detail Author Start: 11-12-2026 Urine microalbumin profile DTAP,TDAP,TD (2 - Td or Tdap) [facility] Start: 11-08-2026 LIPID SCREEN LIPID SCREEN [facility] Start: 11-08-2024 DIABETES SCREEN DIABETES SCREEN [facility] Start: 09-26-2023 FECAL OCCULT BLOOD FECAL OCCULT BLOO D [facility] Start: 11-19-2022 COVID-19 VACCINE (#1) COVID-19 VACCI NE (#1) [facility] Comment on above: Postponed from 08/21 (Declined at this time) Start: 10-20-2022 DEPRESSION ASSESSMENT DEPRESSION ASS ESSMENT [facility] Start: 09-27-2022 COLORECTAL CANCER SCREENING COLORECTAL CANCER SCREENING [facility] Start: 09-04-2022 Mammography MAMMOGRAM [facility] Start: 06-20-2022 Influenza vaccination INFLUENZA (#1) [facility] Start: 03-19-2021 Colonoscopy COLONOSCOPY [facility] Start: 09-15-2014 HPV TESTING HPV TESTING [facility] Start: 09-15-2014 PAP TESTING PAP TESTING [facility] Start: 02-19-2008 SHINGRIX VACCINE (1 of 2) SHINGRIX VACCINE (1 of 2) [facility] Start: 2003 COLOGUARD (FIT-DNA) COLOGUARD (FIT-D NA) [facility] Start: [address] COLONOGRAPHY [facility] Start: 2003 SIGMOIDOSCOPY SIGMOIDOSCOPY [facility] Start: 02-19-1976 HIV SCREENING HIV SCREENING [facility] End: 11-22-2023 MARTHA SCREENING MARTHA SCREENING Radiology Routine Encounter for screening mammogram for breast cancer 1 Occurrences starting 10/23/2022 until 11/22/[address] [facility] Work Phone: Comment on above: 1 Occurrences starti ng 10/23/2022 until 11/22/2023 Immunizations Immunization Date Immunization Notes Care Provider Jade ashby 11-12-2016 tetanus toxoid, redu jessica diphtheria toxoid, and acellular pertussis vaccine, adsorbed Lupe Ariza MD Work Phone: [facility] Payers Date Payer Category Payer Self-pay [id number] 2024 Unknown [id number] Unknown RUDY AID [id number] Unknown [id number] Unknown [id number] Social History Date Type Detail Facility Start: 08-27-2022 End: 09-02-2023 Tobacco smoking status NHIS Unknown if ever smoked [facility] Start: 1960 Sex Assigned At Female [facility] Tobacco smoking stat NHIS Never smoked tobacco [facility] Start: 11-19-2021 Alcohol intake Current drinke r of alcohol (finding) [facility] Start: 1960 Sex Assigned At Not on file [facility] Clinical Note 10-23-2022 Note Date & Type Note Facility 10-23-2022 Note Patient Outreach (IN [facility]) VIANEY TORRE ([id number]) 1960 F Date Time Provider Department 10/23/22 LUPE ARIZA During your visit today, we recorded the following information about you: Allergies As of Date: 10/23/2022 (No Known Allergies) Date Reviewed: 11/19/2021 Reviewed by: Eron Martinez Ma - Fully Assessed Visit Diagnosis:Encounter for screening mammogram for breast cancer [Z12.31] Order(s):MARTHA SCREENING [[id number]] Order #: [id number] FUTURE Prescriptions as of 10/28/2022 - mv,Ca,min-folic acid-vit K1 (ONE-A-DAY WOMEN'S 50 PLUS) 400-20 mcg tab Take 1 tablet by mouth once daily. - alpha tocopheryl acetate (VITAMIN E) 400 unit capsule Take 400 Units by mouth once daily. - omega-3 fatty acids(FISH OIL 500 MG CAP) Take one(1) capsule daily. - ASPIRIN 81 MG TAB Take one (1) tablet daily . Problem List As Of Date 10/23/2022 Noted Resolved PURE HYPERCHOLESTEROLEM [E78.00] 12/15/2006 ASCUS Favor Benign [R87.610] 09/15/2009 Family History of Malignant Neoplasm of Breast *09/15/2009 Postmenopausal Atrophic Vaginitis [N95.2] 09/15/2009 Cystocele, Midline [N81.11] 09/15/2009 Urgency of Urination [R39.15] 09/15/2009 Female Stress Incontinence [N39.3] 09/15/2009 Encounter Status:Closed by CitizenShipper, PRODUSER on 10/28/22 [facility] Progress note 11-19-2021 Note Date & Type Note Facility 11-19-2021 Note HNO ID: [id number] Author: Lupe Ariza MD Service: ? Author Type: Physician Type: Progress Notes Filed: 11/19/2021 9:29 AM Note Text: Chief Complaint Patient presents with: Wellness HPI Vianey Torre is a 61 year old female who presents here today for physical. Last OV was 01/07/2019. Pt will be leaving for [facility] for 8 days, then to [facility]). Leaving soon and staying for 2 weeks. GI/Urinary - No bowel, Gi, or urinary issues. Pt had colonoscopy completed in 2016, which recommended repeat 5 year surveillance. FHx Father of rectal cancer. Not really wanting to do colonoscopy but agrees to IFOBT. Does have intermittent issues with hemorrhoids. Cardiac - Denies any chest pain, sob or dizziness. Will have occasional mid-sternal sensation that occurs rarely, not real concerned about it. Diet/Exercise - Feels that she follows a pretty good balanced diet, could improve with eating more fruit. Denies any formal exercise, does bike but stays fairly busy at home. Foot - Hit right foot against door stop quite some time ago. Will have occasional burning pain on the medial side of her foot and possibly swollen. Believes it may be related to her shoes. Ears - Would like to have ears looked at, especially right ear. Feels there is some excessive wax on that side. Does clean with qtips. Derm - Spot on face that she's previously had looked at by Dr. Ly Little. Taking multivitamin, Vit E, Fish oil, and Aspirin 81 mg daily. HM - Declines Covid vaccine and flu vaccine. Pt completed Mammogram at [facility] on 09/18/ Past medical history, appointments, medications, allergies reviewed. Previous Medical History PAST MEDICAL HISTORY Diagnosis Date - PMH - PAST MEDICAL HISTORY OF low back pain - Snoring - Unspecified hemorrhoids without mention of complication Hemorrhoids Previous Surgical History PAST SURGICAL HISTORY Procedure Laterality Date - COLONOSCOPY N/A 03/19/2016 Dr. Galeano - [facility], DIAG AND/OR THERAPEUTIC 1992, 1991 Dilation AND curettagex 2 Family History FAMILY HISTORY Problem Relation Age of Onset - Breast Cancer Mother - Breast Cancer Maternal Aunt - Breast Cancer Maternal Aunt - Cancer Maternal Aunt ovarian - Heart Maternal Grandfather - Cancer Paternal Aunt leukemia - Cancer Paternal Aunt brain - Cancer Paternal Uncle bone - Diabetes Maternal Grandmother - Cancer Father rectal Patient Allergies ALLERGIES No Known Allergies Current Medications Current Outpatient Medications on File Prior to Visit Medication Sig - mv,Ca,min-folic acid-vit K1 (ONE-A-DAY WOMEN'S 50 PLUS) 400-20 mcg tab Take 1 tablet by mouth once daily. - alpha tocopheryl acetate (VITAMIN E) 400 unit capsule Take 400 Units by mouth once daily. - omega-3 fatty acids(FISH OIL 500 MG CAP) Take one(1) capsule daily. - ASPIRIN 81 MG TAB Take one (1) tablet daily . No current facility-administered medications on file prior to visit. Social History Social History Tobacco Use - Smoking status: Never Smoker - Smokeless tobacco: Never Used Substance Use Topics - Alcohol use: Yes Comment: occasionally - Drug use: No EXAM: BP 130/84 (BP Site: Left Arm, BP Position: Sitting, BP Cuff Size: Regular Adult) Pulse 78 Resp 16 Ht 155.6 cm (5' 1.25) Wt 66.6 kg (146 lb 12.8 oz) LMP 10/22/2012 BMI 27.51 kg/m? Gen: Alert and oriented, NAD CV: RRR Lungs: clear Right foot: mild tenderness on medial navicular, no swelling Health Maintenance List COVID-19 VACCINE(1) Never done HIV SCREENING Never done SHINGRIX VACCINE(1 of 2) Never done PAP TESTING due on 09/15/2014 HPV TESTING due on 09/15/2014 DEPRESSION SCREENING due on 01/08/2020 MAMMOGRAM due on 09/22/2020 COLORECTAL CANCER SCREENING due on 03/19/2021 INFLUENZA(1) due on 06/20/2021 DIABETES SCREEN due on 11/08/2024 LIPID SCREEN due on 11/08/2026 DTAP,TDAP,TD(2 - Td or Tdap) due on 11/12/2026 HEPATITIS C SCREENING Completed MENINGOCOCCAL CONJUGATE Aged Out Data reviewed Appointment on 11/08/2021 Component Date Value - Protein, Total 11/08/2021 7.1 - Albumin 11/08/2021 4.5 - Calcium 11/08/2021 9.4 - Bilirubin, Total 11/08/2021 0.4 - Alkaline Phosphatase 11/08/2021 81 - AST 11/08/2021 29 - Glucose 11/08/2021 87 - BUN 11/08/2021 17 - Creatinine 11/08/2021 0.65 - Sodium 11/08/2021 142 - Potassium 11/08/2021 4.1 - Chloride 11/08/2021 104 - CO2 11/08/2021 24 - Anion Gap 11/08/2021 14 - ALT 11/08/2021 27 - eGFR- 11/08/2021 >60 - eGFR-All Other Races 11/08/2021 >60 - Cholesterol, Total 11/08/2021 288 (A) - Triglyceride 11/08/2021 67 - HDL Cholesterol 11/08/2021 97 - LDL Cholesterol 11/08/2021 178 (A) - Non HDL Cholesterol 11/08/2021 191 (A) - Fasting Time 11/08/2021 12 - VLDL Cholesterol 11/08/2021 13 - TC:HDL Ratio 11/08/2021 2.97 - LDL:HDL Ratio 11/08/2021 1.84 - Hemoglobin A1C 11/08/2021 5 (more content not included)... [facility] Evaluation note Note Date & Type Note Facility [facility] note Note Date & Type Note Facility Evaluation note Diagnosis Encounter for screening mammogram for breast cancer documented in this encounter [facility] Reason for referral (narrative) Diagnostic Procedure Only (Routine) - Pending Review Note Date & Type Note Facility Reason for referral (narrati ve) Specialty Diagnoses / Procedures Referred By Chaim t Referred To Contact [facility] Diagnoses Encounter for screening mammogram for breast cancer Procedures MARTHA SCREENING SCREENING MAMMOGRAPHY BI 2-VIEW BREAST INC CAD Lupe Ariza MD [address] [place] [address] [facility] [address] [place] [address] Referral ID Status Reason Start Date Expiration Date Visits Requested Visits Authorized [id number] Pending Review Auto-Generat ed Referral 10/23/2022 11/22/2023 1 1 [facility] Summary Purpose Family History No Family History Records FoundNo Family History Records FoundNo Family History Records Found Advance Directives No Advanced Directives Records FoundNo Advanced Directives Records FoundNo Advanced Directives Records Found Chief Complaint and Reason for Visit Chief Complaint SCREENING Amb Documentation Chief Complaint SCREENING Additional Source Comments INFORMATION SOURCE (unrecogn ized section and content) DATE CREATED AUTHOR 04/10/2018 [facility] DATE CREATED AUTHOR AUTHOR'S ORGANIZ ATION 10/28/2022 [facility] DATE CREATED AUTHOR AUTHOR'S ORGANIZ ATION 08/21/2025 [facility] Goals (unrecognized section and content) Goals may be documented in a n alternate sectionGoals may be documented in an alternate section Source Comments (unrecognize d section and content) In the event this informatio n is protected by the Federal Confidentiality of Alcohol and Drug Abuse Patient Records regulations: The Federal rules restrict any use of the information to criminally investigate or prosecute any alcohol or drug abuse patient.[facility] Care Teams (unrecognized sec tion and content) Diesel Technician Mechanic Relationship Specialty Start Date End Date Lupe Ariza MD [address] [place], [place] [id number] PCP - General Family Medicine 01/07/19 Team Status: Active Member Role Status Dates Dr. Lupe Ariza MD Primary Care Provider Active Team Status: Inactive Member Role Status Dates Dr. Lupe Ariza MD Primary Care Provider Active Anahi Tolliver CNM Attending Provider, Referring Pro vider Active FOR RECORDS PERTAINING TO PATIENTS WHO ARE OR HAVE BEEN ENROLLED IN A CHEMICAL DEPENDENCY/SUBSTANCEABUSE PROGRAM, SOME INFORMATION MAY BE OMITTED. This clinical summary was aggregated from multiple sources. Caution should be exercised in using it in the provision of clinical care. This summary normalizes information from multiple sources, and as a consequence, information in this document may materially change the coding, format and clinical context of patient data. In addition, data may be omitted in some cases. CLINICAL DECISIONS SHOULD BE BASED ON THE PRIMARY CLINICAL RECORDS. [facility] [employer] provides no warranty or guarantee of the accuracy or completeness of information in this document.
== END | disposition home or self-care (01) ==
LOC: OPBI 09:00
PROVIDERS: PCP Family Medicine; Referring Provider Nurse Practitioner Women's Health; Visit Provider Nurse Practitioner Women's Health
DX: Z12.31 Encounter for screening mammogram for malignant neoplasm of breast (principal)
CPT/HCPCS: 77063; 77067

== ENCOUNTER → 2025-09-02 | Outpatient (CLI) | payer SELFPAY, OTHER ==
--- NOTE | 2025-09-02 09:21 | US_ITS ---
PROCEDURE: BREAST LIMITED UNILATERAL 09/02/2025 REASON FOR EXAM: F, Age 65 y/o , ABD MAMM COMPARISON: Prior screening mammogram dated August 30, 2014.. TECHNIQUE: Procedure Code: USBRSTLIMIT Modality: US Procedure: BREAST LIMITED UNILATERAL. FINDINGS: The upper-outer quadrant of the right breast was examined with ultrasound. There is a 6 mm x 7 mm x 2 mm benign-appearing lymph node at the 10 o'clock position of the breast at 4 cm from the nipple. US/Breast Limited Unilateral IMPRESSION: 6 mm x 7 mm x 2 mm benign-appearing lymph node at the 10 o'clock position of th e breast at 4 cm from the nipple. BI-RADS 2: BENIGN RECOMMENDATION: Routine annual follow-up in 1 Year Reading Location: [place] [address]
== END | disposition home or self-care (01) ==
LOC: OPUS 09:16
PROVIDERS: PCP Family Medicine; Referring Provider Nurse Practitioner Women's Health; Visit Provider Nurse Practitioner Women's Health
DX: R92.8 Other abnormal and inconclusive findings on diagnostic imaging of breast (principal)
CPT/HCPCS: 76642